=== PATIENT | female | born 1995 | race Two or more races ===

== ENCOUNTER 2023-06-16 06:26 | Inpatient (IN) | payer OTHER ==
[~2023-06-16] VITALS: Ht 152.4 cm; Wt 3.2 kg
[2023-06-16] MEDS ORDERED: PRENATABS RX T1 EACH PO (08:03)
[2023-06-20] MEDS ORDERED: COLACE100 MG PO (13:24)
[2023-06-20] MEDS ORDERED: PERCOCET 5-3251 EACH PO (13:24)
[2023-06-20] MEDS ORDERED: IBU800 MG PO (13:24)
== END 2023-06-20 13:51 | disposition home or self-care (01) | DRG 788 ==
LOC: LDR 06:26 → OB/GYN 06-17 00:40
PROVIDERS: ADMIT Obstetrics & Gynecology; ATTEND Obstetrics & Gynecology
PROC: 10D00Z1 Extraction of Products of Conception, Low, Open Approach (ICD-10-PCS; principal; 2023-06-17)
PROC: 4A1HXCZ Monitoring of Products of Conception, Cardiac Rate, External Approach (ICD-10-PCS; 2023-06-18)
DX: O62.1 Secondary uterine inertia (principal); Z3A.39 39 weeks gestation of pregnancy; Z37.0 Single live birth; Z20.822 Contact with and (suspected) exposure to COVID-19